=== PATIENT | male | born 1960 | race Caucasian/White ===

== ENCOUNTER → 2016-11-22 | Outpatient (CLI) | payer OTHER ==
[~2016-11-22] MED LIST: BUPR300T43 PO; CALC600C PO; CALC625T PO; CLOT1CRE3 TOP; DIVA500T59 PO; DSWCR15 TD; KETO2SHA EXT; LEVO75TA5 PO; LOPE-5 PO; MILK140C PO; MULTTAB58 PO; RANI150T3 PO; RISP2TAB21 PO; RISP4TAB7 PO; [UNRECOGNIZED DRUG - OTHER] PO
--- NOTE | 2016-11-23 06:44 | PAP/PSG TECHNICIAN REPORT ---
[facility] Consulting Services Associate Polysomnogram Report Study name: None Report date: 11/23/2016 Study date: 11/22/2016 Referring Physician: Sayra WISE M.D. Name: KARSTEN PICKENS Interpreting Physician: Su Wise M.D. Date of : 1960 Consulting Services Associate: Callie Yap RPSGT. Sex: Male Age: 56 Study Type: PSG Weight: 208 lbs 15.75 in Height: 56 years, Height 5' 4.25" Neck Circum: BMI: 35.42 Medications: RISPERDONE 4-2 MG, CARBAMAZEPINE 300 MG, DIVALPROEX 500 MG, LEVOTHYROXINE 75 MCG, BUPROPION 300 MG, FEXOFENADINE 180 MG, NB MULTI DAY, BENEFIBER CLEAR POWDER, KETOCONAZOLE 2% SHAMPOO, RANITIDINE 150 MG, PROAIR HFA 90 MCG Patient History 56 yr-old male with mild MR here for a baseline/split study. He has a history of sleep maintenance insomnia and daytime sleepiness. His [place] scale is 8. The test was started on room air. ETCO2 testing is included in this study. Room 3 Parameters Monitored NPSG: E1-M2, E2-M1, Fp1-M2, Fp2-M1, F3-M2, F4-M2, F4-M1, C3-M2, C4-M2, C4-M1, O1-M2, O2-M2, O2-M1, T3-M2, T4-M1, P3-M2, P4-M1, CHIN1, CHIN2, HR, EKG, Legs, PFLOW, SNOR, FLOW, CFLOW, Tidal Volume, THOR, ABDO, SpO2, PLTH, CPRESS, ETCO2 Wave, ETCO2, pH Sleep Architecture Sleep Stages Time at Lights Off 9:30:52 PM STAGES Time (min.) TST (%) Time at Lights On 5:25:52 AM Wake 153.5 -- Total Recording Time (TRT) 475.00 min. N1 33.0 10 Total Sleep Period (TSP) 349.0 min. N2 189.0 59 Total Sleep Time (TST) 321.5min. N3 38.5 12 Awake Time 153.5 min. REM 61.0 19 Wake after Sleep Onset 39.5 min. Sleep Efficiency (SE) 68 % Sleep Onset Latency (JENN) 114.0 min. Number of Stage 1 Shifts None Awakenings 16 Stage Changes 66 Number of REM periods 3 REM 61.0 19 REM Latency 105.0 min. NREM 260.5 81 Body Position Analysis Supine Right Left Side Prone Vertical Total Sleep Time (min.) 332.7 0.0 80.0 80.04 0.0 0.0 Total Sleep Time (%) 75% 0% 25% 25 0% N/A% Total Sleep Time REM (min.) 53.0 0.0 8.0 None 0.0 0.0 Total Sleep Time NREM (min.) 188.5 0.0 72.0 None 0.0 0.0 Intermittent Wake (min.) 91.3 0.0 62.2 None 0.0 0.0 Total Sleep Period (%) 73% None None None None None Arousals Myoclonus (PLM) * Events Count Index Events Count Index Spontaneous 32 6 Events Awake (PLMW) 221 86.4 Respiratory 3 0.6 Events Asleep w/ Arousal (PLMA) 10 1.9 PLM 10 2 Events Asleep w/o Arousal (PLMS) 77 14.4 Snoring 2 0 Total Asleep 87 16.2 Total 47 9 Total 308 39 Respiratory Analysis * CA OA MA CH H RERA Total Count 3 0 0 0 27 2 30 Index 0.6 0.0 0.0 0 5.0 0 6.0 Mean Duration 12.2 0.0 0.0 0.00 19.0 14.1 18.1 Longest Duration 15.8 0.0 0.0 0.00 0.0 14.5 47.2 Respiratory Event Summary Total Supine ~Supine Right Left Prone REM NREM Apneas Count 3 2 1 N/A 1 N/A 2 1 Index 0.6 0 1 N/A 0.7 N/A 2 0 Hypopneas (4% Desat) Count 27 21 6 N/A 6 N/A 17 10 Index 5.0 5.2 4 N/A 4.5 N/A 16.7 2.3 Apneas & All Hypopneas Count 30 23 7 N/A 7 N/A 19 11 Index 5.6 6 5 N/A 5 N/A 18.7 2.5 Respiratory Events (Supervisor Ski Production+All Hyp+RERA) Count 30 25 7 N/A 7 N/A 19 11 Index 6.0 6 5 N/A 5.2 N/A 19.7 2.8 Respiratory Related Arousal Count 3 25 0 N/A 0 N/A 2 1 Index 0.6 1 0 N/A 0 N/A 2 0 Snoring Analysis Supine Right Left Prone REM NREM Total Snore duration 3.1 min Snores count 141 N/A 16 N/A 85 72 157 Snore mean duration 1.2 Sec Snores index 35 N/A 12 N/A 83.6 16.6 29.3 TST with snoring (%) 1.0% SpO2 Analysis Total REM NREM Awake <50% 0.0 min. 0.0 min. 0.0 min. 0.0 min. 51 - 60% 0.0 min. 0.0 min. 0.0 min. 0.0 min. 61 - 70% 0.0 min. 0.0 min. 0.0 min. 0.0 min. 71 - 80% 0.3 min. 0.3 min. 0.0 min. 0.0 min. 81 - 90% 139.5 min. 40.8 min. 87.5 min. 11.2 min. 91 - 100% 312.0 min. 19.8 min. 173.0 min. 119.2 min. Average 91 89 91 92 Minimum SpO2 77 77 85 85 Desaturation Event Index 10.4 27.5 3.2 15.6 # Desat. Events below 89% 42 27 6 9 Time(%) with Saturation below 89% 5.7 5.0 0.4 0.3 Time(min.) with Saturation below 89% 25.6 22.6 1.6 1.3 Heart Rate Analysis End Tidal CO2 Analysis Min (bpm) Max (bpm) Average (bpm) TSP (mins) % of TSP Awake 62 98 79 Above 55 mmHg 1.4 0.4 NREM 56 93 68 50-55 mmHg 40.7 12.7 REM 62 96 70 45-50 mmHg 248.9 77.4 Overall 56 96 69 40-45 mmHg 29.0 9.0 35-40 mmHg 1.4 0.4 30-35 mmHg 0.1 0.0 Average ETCO2 0.0 Supplemental O2 Values Minimum O2 level: None Value Start Time End Time Consulting Services Associate Comments Mr. Pickens slept in the left, right, and supine positions. No cardiac arrhythmias were noted. PLMs were noted. No bruxism noted. Snoring was noted and scored as a 1 on a scale of 1 through 5. (0=no snoring, 5=snoring loud enough to be heard through a closed door or down the [address] way). He did not meet specific Split-Night criteria during the diagnostic portion of this study. He used the restroom four times before sleep onset. Mr. Pickens stated that he slept about the same as usual. The final report will be interpreted and signed by a sleep physician. The completed physician report will then be placed in the patient medical record. Therapy (cm H2O) 0 TIB (min.) 475.0 TST (min.) 321.5 Sleep Onset (min.) 114.0 REM Onset From Sleep (min.) 105.0 Sleep Efficiency % 68 Wakefulness (%) 32 Wakefulness (min.) 153.5 NREM 1 (%) 10 NREM 1 (min.) 33.0 NREM 2 (%) 59 NREM 2 (min.) 189.0 NREM 3 (%) 12 NREM 3 (min.) 38.5 REM (%) 19 REM (min.) 61.0 # Arousals 47 Arousal Index 9 # Snore 157 Snore Index 29.3 AHI 5.6 AHI Supine 6 AHI Non-Supine 5 NREM AHI 2.5 REM AHI 18.7 RDI 6.0 # Obstructive Apnea 0 # Central Apnea 3 # Mixed Apnea 0 # Hypopneas 27 RERAs 2 Total Respiratory Events 32 Time Below SpO2 89% (min.) 24.2 Mean NREM SpO2 (%) 91 Mean REM SpO2 (%) 89 Mean Sleep SpO2 (%) 91 Min NREM SpO2 (%) 85 Min REM SpO2 (%) 77 Position Supine (min.) 332.7 Position Non-supine (min.) 80.0 LM Index Sleep 16.2 LM Index NREM 17.3 LM Index REM 11.8 Mean Heart Rate (bpm) 69 Min Heart Rate (bpm) 56
--- NOTE | 2016-11-28 13:55 | POLYSOMNOGRAPH REPORT ---
REFERRING PERSON: Dr. Le Wise. INTRAMURAL DIRECTOR: Callie Yap. Mr. Pickens is a 56-year-old male sent for a baseline, possible split night sleep study. He has a history of sleep maintenance insomnia as well as excessive daytime sleepiness. His [place] sleepiness scale score on the evening of this study is 8. BMI is 35.42. Following the technical and digital specifications of the [employer] (AASM) a standard diagnostic polysomnogram was performed monitoring EEG, EOG, EMG (chin and leg deviations), oxygen saturation, body position, digital video, respiratory effort and airflow. The sleep Stage and event scoring was based on the AASM Manual for the Scoring of Sleep and Associated Events 2007 edition. Apneas are defined as a drop in the peak thermal sensor excursion by >90% of baseline for at least 10 seconds. Hypopneas were scored using the 4% oxygen desaturation rule (4A-Medicare) and a decrease in the nasal pressure excursions by >30% of baseline for at least 10 seconds. Respiratory effort-related arousal (RERA's) is defined as a sequence of breaths lasting at least 10 seconds characterized by increasing respiratory effort or flattening of the nasal pressure waveform leading to an arousal from sleep when the sequence of breaths does not meet criteria for an apnea or hypopnea. Apnea Hypopnea index (AHI) is defined as the number of apneas and hypopneas occurring in an hour of sleep. Respiratory disturbance index (RDI) is defined as the number of apneas, hypopneas, and RERA's occurring in an hour of sleep. Mr. Pickens's total sleep period time was 349 minutes. Total sleep time was 321.5 minutes. Sleep efficiency was 68%. Latency to sleep onset was 114 minutes. Total non-REM sleep time was 260.5 minutes. He spent 10% of that time in N1 sleep, 59% in N2 sleep, and 12% in N3 sleep. REM latency was 114 minutes with wake after sleep onset was 39.5 minutes. Total REM sleep time was 61 minutes or 19% of total sleep time. REM latency was 105 minutes. There were 47 cortical arousals from sleep. Two of these arousals were due to snoring, 10 due to periodic limb movements of sleep, 3 were due to respiratory events and the remaining 32 were spontaneous. There were 87 periodic limb movements noted on this test. Limb movement index was 16.2. Limb movement with arousal index was 1.9. There were 3 central apneas, no obstructive apneas and no mixed apneas on this test. There were 27 hypopneas and 2 RERA. Apnea-hypopnea index was mildly elevated at 5.6. The supine AHI was 6, REM AHI was 18.7. There were 157 snoring events recorded. Total sleep time with snoring was 1%. Mean saturation was 91% with desaturations to 77%. Saturations were less than 89% for 5.7 minutes of recording time. This is mild nocturnal hypoxemia. There was no cardiac ectopy noted on this study. Mr. Pickens's heart rate ranged from a low of 56 beats per minute to a high of 96 beats per minute during sleep. End tidal CO2 was recorded on this test. End tidal CO2s were above 55 mmHg for 0.4% of total sleep period time, between 50 and 55 mmHg for 12.7% of total sleep period time, between 45 and 50 mmHg for 77.4%, between 40 and 45 mmHg for 9%, and less than 40 mmHg for 0.4% of total sleep period time. IMPRESSION AND PLAN: 56-year-old male with mild sleep apnea and mild nocturnal hypoxemia on this sleep study. End tidal CO2 was also somewhat suggestive of hypoventilation. 1. This patient would likely benefit from positive airway pressure therapy. He should return to the sleep lab for a full night titration and then based on those results be started on equipment at home. A download from his machine can be reviewed in 1 month both to check compliance as well as AHI and further pressure adjustments can occur at that time. 2. Should this patient be unwilling or unable to tolerate CPAP therapy, he could be referred to ear, nose and throat or oral surgery/dental medicine (if appropriate) to discuss alternative treatments for sleep disorder breathing.
== END | disposition home or self-care (01) ==
LOC: C.NEUR 20:00
PROVIDERS: ATTEND Family Medicine
DX: G47.36 Sleep related hypoventilation in conditions classified elsewhere (principal)

== ENCOUNTER → 2017-01-17 | Outpatient (CLI) | payer OTHER ==
--- NOTE | 2017-01-18 06:35 | PAP/PSG TECHNICIAN REPORT ---
[facility] Drivability Technician Polysomnogram Report Study name: None Report date: 01/18/2017 Study date: 01/17/2017 Referring Physician: Sayra WISE M.D. Name: KARSTEN PICKENS Interpreting Physician: Su Wise M.D. Date of : 1960 Drivability Technician: Callie Yap RPS. Sex: Male Age: 56 Study Type: PSG PAP Weight: 208 lbs 15.75 IN Height: 56 years, Height 5' 4.25" Neck Circum: BMI: 35.42 Medications: RISPERDONE 4-2 MG, CARBAMAZEPINE 300 MG, DIVALPROEX 500 MG, LEVOTHYROXINE 75 MCG, BUPROPION 300 MG, FEXOFENADINE 180 MG, NB MULTI DAY, BENEFIBER CLEAR POWDER, KETOCONAZOLE 2% SHAMPOO, RANITIDINE 150 MG, PROAIR HFA 90 MCG Patient History 56 yr-old male here for a new CPAP treatment study. He was found to be positive for PAULETTE with an AHI of 5.6. His diagnostic study was on 11/22/16. He chose an Eson 2 nasal mask size small from [employer]. The test was started on room air and 4 CMH2O. ETCO2 testing was not utilized during this study. Room 1 Parameters Monitored NPSG: E1-M2, E2-M1, Fp1-M2, Fp2-M1, F3-M2, F4-M2, F4-M1, C3-M2, C4-M2, C4-M1, O1-M2, O2-M2, O2-M1, T3-M2, T4-M1, P3-M2, P4-M1, CHIN1, CHIN2, HR, EKG, Legs, PFLOW, SNOR, FLOW, CFLOW, Tidal Volume, THOR, ABDO, SpO2, PLTH, CPRESS, ETCO2 Wave, ETCO2, pH Sleep Architecture Sleep Stages Time at Lights Off 8:57:13 PM STAGES Time (min.) TST (%) Time at Lights On 5:29:43 AM Wake 40.0 -- Total Recording Time (TRT) 512.50 min. N1 25.5 5 Total Sleep Period (TSP) 508.0 min. N2 294.0 62 Total Sleep Time (TST) 472.5min. N3 28.5 6 Awake Time 40.0 min. REM 124.5 26 Wake after Sleep Onset 35.5 min. Sleep Efficiency (SE) 92 % Sleep Onset Latency (JENN) 4.5 min. Number of Stage 1 Shifts None Awakenings 6 Stage Changes 50 Number of REM periods 5 REM 124.5 26 REM Latency 108.5 min. NREM 348.0 74 Body Position Analysis Supine Right Left Side Prone Vertical Total Sleep Time (min.) 512.5 0.0 0.0 0.00 0.0 0.0 Total Sleep Time (%) 100% 0% 0% 0 0% N/A% Total Sleep Time REM (min.) 124.5 0.0 0.0 None 0.0 0.0 Total Sleep Time NREM (min.) 348.0 0.0 0.0 None 0.0 0.0 Intermittent Wake (min.) 40.0 0.0 0.0 None 0.0 0.0 Total Sleep Period (%) 100% None None None None None Arousals Myoclonus (PLM) * Events Count Index Events Count Index Spontaneous 38 5 Events Awake (PLMW) 29 43.5 Respiratory 0 0.0 Events Asleep w/ Arousal (PLMA) 7 0.9 PLM 7 1 Events Asleep w/o Arousal (PLMS) 31 3.9 Snoring 1 0 Total Asleep 38 4.8 Total 46 6 Total 67 8 Respiratory Analysis * CA OA MA CH H RERA Total Count 2 0 0 0 11 0 13 Index 0.3 0.0 0.0 0 1.4 0 1.7 Mean Duration 14.9 0.0 0.0 0.00 17.0 0.0 16.7 Longest Duration 15.7 0.0 0.0 0.00 0.0 0.0 20.2 Respiratory Event Summary Total Supine ~Supine Right Left Prone REM NREM Apneas Count 2 2 N/A N/A N/A N/A 1 1 Index 0.3 0 N/A N/A N/A N/A 0 0 Hypopneas (4% Desat) Count 11 11 N/A N/A N/A N/A 7 4 Index 1.4 1.4 N/A N/A N/A N/A 3.4 0.7 Apneas & All Hypopneas Count 13 13 N/A N/A N/A N/A 8 5 Index 1.7 2 N/A N/A N/A N/A 3.9 0.9 Respiratory Events (Engineering Professor+All Hyp+RERA) Count 13 13 N/A N/A N/A N/A 8 5 Index 1.7 2 N/A N/A N/A N/A 3.9 0.9 Respiratory Related Arousal Count 0 13 N/A N/A N/A N/A 0 0 Index 0.0 0 N/A N/A N/A N/A 0 0 Snoring Analysis Supine Right Left Prone REM NREM Total Snore duration 0.6 min Snores count 12 N/A N/A N/A 5 7 12 Snore mean duration 3.0 Sec Snores index 2 N/A N/A N/A 2.4 1.2 1.5 TST with snoring (%) 0.1% Desaturation Event Summary: Minimum %SpO2 Event Count Mean/Min/Max Duration(sec.) Desaturation Index % Time In Bed > 90 18 21.4 / 4.5 / 60.0 3.4 63.6 86 - 90 5 16.0 / 4.5 / 28.5 1.7 36.3 81 - 85 0 N/A 0.0 0.1 76 - 80 0 N/A 0.0 0.0 71 - 75 0 N/A 0.0 0.0 66 - 70 0 N/A 0.0 0.0 61 - 65 0 N/A 0.0 0.0 56 - 60 0 N/A 0.0 0.0 51 - 55 0 N/A 0.0 0.0 < 50 0 N/A 0.0 0.0 Total REM NREM Awake <50% 0.0 min. 0.0 min. 0.0 min. 0.0 min. 51 - 60% 0.0 min. 0.0 min. 0.0 min. 0.0 min. 61 - 70% 0.0 min. 0.0 min. 0.0 min. 0.0 min. 71 - 80% 0.0 min. 0.0 min. 0.0 min. 0.0 min. 81 - 90% 181.7 min. 29.1 min. 145.8 min. 6.8 min. 91 - 100% 317.9 min. 95.4 min. 202.2 min. 20.3 min. Average 91 91 91 91 Minimum SpO2 83 86 87 83 Desaturation Event Index 2.5 4.8 1.6 3.0 # Desat. Events below 89% 5 3 2 N/A Time(%) with Saturation below 89% 1.0 0.4 0.5 0.1 Time(min.) with Saturation below 89% 5.2 1.9 2.7 0.7 Time (mins) REM (mins) NREM (mins) % of TST SpO2 Below 90% 18 9 N9 11.0 SpO2 Below 88% 2 0 0 0 Heart Rate Analysis Min (bpm) Max (bpm) Average (bpm) Awake 53 188 73 NREM 48 83 60 REM 50 85 61 Overall 48 85 60 Supplemental O2 Values Minimum O2 level: None Value Start Time End Time Drivability Technician Comments Mr. Pickens slept only in the supine position. No cardiac arrhythmias or PLMs noted. No bruxism noted. CPAP was initiated at +4 CMH2O and up-titrated to a level of +6 CMH2O, Cflex 2 which nearly eliminated all respiratory events and snoring. An Eson 2 nasal mask size small from [employer] was used during titration He awoke to use the restroom two times during the night. Mr. Pickens stated that he slept well and liked the nasal mask. The final report will be interpreted and signed by a sleep physician. The completed physician report will then be placed in the patient medical record. Therapy Event: Therapy (cm H20) 4 5 6 Total Time at Pressure (min.) 233.8 160.0 118.7 TST at Pressure (min.) 219.3 135.0 118.2 # Periods 1 1 1 Sleep Onset (min.) 4.5 0.0 0.0 REM Onset (min.) 113.0 0.0 0.2 Sleep Efficiency % 93 84 99 Wakefulness (%) 6.2 15.6 0.4 Wakefulness (min.) 14.5 25.0 0.5 NREM 1 (%) 6.6 4.9 1.9 NREM 1 (min.) 15.5 7.8 2.2 NREM 2 (%) 60.9 54.1 54.8 NREM 2 (min.) 142.5 86.5 65.0 NREM 3 (%) 12.2 0.0 0.0 NREM 3 (min.) 28.5 0.0 0.0 REM (%) 14.0 25.4 43.0 REM (min.) 32.8 40.7 51.0 # Arousals 26 11 9 Arousal Index 7.1 4.9 4.6 # Snore 2 4 6 Snore Index 0.5 1.8 3.0 AHI 1.6 2.7 0.5 AHI Supine 1.6 2.7 0.5 AHI Non-Supine N/A N/A N/A NREM AHI 1.0 1.3 0.0 REM AHI 5.5 5.9 1.2 RDI 1.6 2.7 0.5 # Obstructive 0 0 0 # Central Ap 1 1 0 # Mixed 0 0 0 # Hypopneas 5 5 1 RERAS 0 0 0 Total Respiratory Events 6 6 1 Time Below SpO2 89.00% (min.) 4.1 0.3 0.1 Mean NREM SpO2 (%) 90 91 92 Mean REM SpO2 (%) 91 91 92 Mean Sleep SpO2 (%) 90 91 92 Min NREM SpO2 (%) 87 87 90 Min REM SpO2 (%) 86 88 88 Position Supine (min.) 219.3 135.0 118.2 Position Non-supine (min.) 0.0 0.0 0.0 LM Index Sleep 6.0 2.7 5.1 LM Index NREM 6.1 3.2 3.6 LM Index REM 5.5 1.5 7.1 Mean Heart Rate (bpm) 64 57 57 Min Heart Rate (bpm) 52 49 48
--- NOTE | 2017-01-29 18:36 | POLYSOMNOGRAPH REPORT ---
REFERRING PERSON: Dr. Le Wise. SAFETY COMPLIANCE SPECIALIST: Callie Yap. Mr. Pickens is a 56-year-old male sent for CPAP titration study. He was found to have mild obstructive sleep apnea with an AHI of 5.6. His diagnostic was performed on 11/22/2016. He has chosen and Eson 2 nasal mask at [facility] in a [facility] for his titration. His [place] Sleepiness Scale score on the evening of this study is not recorded. BMI is 35.42. Following the technical and digital specifications of the [employer] [employer] (AASM) a standard diagnostic polysomnogram was performed monitoring EEG, EOG, EMG (chin and leg deviations), oxygen saturation, body position, digital video, respiratory effort and airflow. The sleep Stage and event scoring was based on the AASM Manual for the Scoring of Sleep and Associated Events 2007 edition. Apneas are defined as a drop in the peak thermal sensor excursion by >90% of baseline for at least 10 seconds. Hypopneas were scored using the 4% oxygen desaturation rule (4A-Medicare) and a decrease in the nasal pressure excursions by >30% of baseline for at least 10 seconds. Respiratory effort-related arousal (RERA's) is defined as a sequence of breaths lasting at least 10 seconds characterized by increasing respiratory effort or flattening of the nasal pressure waveform leading to an arousal from sleep when the sequence of breaths does not meet criteria for an apnea or hypopnea. Apnea Hypopnea index (AHI) is defined as the number of apneas and hypopneas occurring in an hour of sleep. Respiratory disturbance index (RDI) is defined as the number of apneas, hypopneas, and RERA's occurring in an hour of sleep. Mr. Pickens's total sleep period time was 508 minutes. Total sleep time was 472.5 minutes. Sleep efficiency was 92%. Latency to sleep onset was 4.5 minutes with wake after sleep onset of 35.5 minutes. Total non-REM sleep time was 348 minutes. He spent 5% of that time in N1 sleep, 62% in N2 sleep and 6% in N3 sleep. REM latency was 108.5 minutes. Total REM sleep time was 124.5 minutes or 26% of total sleep time. There were 46 cortical arousals from sleep. One of these arousals was due to snoring, 7 were due to periodic limb movements and 38 were spontaneous. There were 38 periodic limb movements noted on this test. Limb movement index was 4.8. Limb movement with arousal index was 0.9. There were 2 central, no obstructive, and no mixed apneas on this test. There were 11 hypopneas and no RERA. Apnea-hypopnea index on this titration was 1.7. There were 12 snoring events. Total sleep time with snoring was 0.1%. Mean saturation was 91% with desaturations to 83%. Saturations were less than 89% for 5.2 minutes of recording time. There was no cardiac ectopy noted on this study. Heart rates during sleep ranged from a low of 48 beats per minute to a high of 85 beats per minute. As stated above, this was a CPAP titration study. Mr. Pickens was titrated from a CPAP pressure of 4 to a CPAP pressure of 6 over the course of the night. Increasing pressures were needed to prevent hypopneas and arousals. He was observed on a pressure of 6 for 118.2 minutes of sleep. 51 of those minutes were spent in REM sleep. There was supine REM sleep on this pressure. AHI and RDI on this pressure were both 0.5. Saturations were less than 89% for 0.1 minutes of recording time. IMPRESSION AND PLAN: Successful CPAP titration study in this patient with mild sleep apnea. It appears that he does well using a small Eson 2 [employer] nasal mask on CPAP at a pressure of 6.
== END | disposition home or self-care (01) ==
LOC: C.NEUR 20:00
PROVIDERS: ATTEND Family Medicine
DX: G47.10 Hypersomnia, unspecified (principal); R35.1 Nocturia

== ENCOUNTER → 2017-07-10 | Outpatient (CLI) | payer OTHER ==
[2017-07-10 09:45] LABS: BASO % 0.2 %; BASO ABS # 0.01 K/uL (0-0.2); COMPLETE YES; EOS % 1.2 %; HEMATOCRIT 44.5 % (42-52); IG% 0.6 %; LYMPH % 42.1 %; LYMPH ABS # 2.09 K/uL (1.2-3.4); MEAN CELL VOLUME 92.9 fL (80-100); MEAN CORPUSCULAR HEMOGLOBIN 32.2 pg (25-34); MEAN CORPUSCULAR HGB CONC 34.6 g/dl (32-36); MEAN PLATELET VOLUME 9.6 fL (7.4-10.4); MONO % 9.1 %; NEUT % 46.8 %; PLATELET COUNT 202 K/uL (130-400); RED BLOOD COUNT 4.79 M/uL (4.7-6.1); WHITE BLOOD COUNT 4.96 K/uL (4.8-10.8)
[2017-07-10 10:02] LABS: ALB/GLOB RATIO 0.9 (0.9-2); ALKALINE PHOSPHATASE 42 U/L (45-117); ALT/SGPT 31 U/L (12-78); AST/SGOT 18 U/L (15-37); BLOOD UREA NITROGEN 11 mg/dl (7-18); BUN/CREATININE RATIO 11.5 (10-20); CALCIUM 9.4 mg/dl (8.5-10.1); CARBON DIOXIDE 30 mmol/L (21-32); CHLORIDE 105 mmol/L (98-107); CREATININE 0.97 mg/dl (0.60-1.40); GLUCOSE 86 mg/dl (70-99); POTASSIUM 4.3 mmol/L (3.5-5.1); SODIUM 142 mmol/L (136-145)
== END | disposition home or self-care (01) ==
LOC: C.LAB 08:26
PROVIDERS: ATTEND Psychiatry & Neurology Neurology
DX: G40.209 Localization-related (focal) (partial) symptomatic epilepsy and epileptic syndromes with complex partial seizures, not intractable, without status epilepticus (principal)